=== PATIENT | male | born 1955 | race Caucasian/White ===

== ENCOUNTER 2021-11-16 23:05 | Emergency (ER) | payer BC ==
[~2021-11-16] VITALS: Ht 182.9 cm; Wt 97.7 kg
[2021-11-16 23:22] VITALS: BP 133/82
== END 2021-11-17 01:45 | disposition left against medical advice (07) ==
LOC: ER 23:07
DX: M79.89 Other specified soft tissue disorders (principal); Z53.21 Procedure and treatment not carried out due to patient leaving prior to being seen by health care provider